=== PATIENT | male | born 1945 | race Caucasian/White ===

== ENCOUNTER 2016-12-01 23:49 | Day surgery (SDCO) | payer OTHER, SELFPAY ==
[2016-12-02 00:58] LABS: BASOPHIL 0.2 % (0-2); EOSINOPHIL 0.8 % (0-7); HGB 13.3 g/dl (13.2-18.0); LYMPHOCYTE 6.9 % (15-48); MCH 28.4 pg (25.0-31.0); MPV 9.1 fL (6.0-9.5); NEUTROPHIL 89.1 % (41-80); PLT 237 K/uL (150-400); RBC 4.69 M/uL (4.70-6.00); RDW 15.8 % (11.5-14.0); WBC 6.3 K/uL (4.0-10.5)
[2016-12-02 01:10] LABS: INR 1.01 (0.9-1.2); PROTHROMBIN TIME 12.9 SECONDS (11.7-14.0); PTT 29.9 SECONDS (23.2-31.4)
[2016-12-02 01:11] LABS: ALBUMIN 4.8 g/dL (3.4-4.8); BILIRUBIN - TOTAL 0.7 mg/dL (0.1-1.0); CREATININE 1.1 mg/dL (0.7-1.2); D-DIMER 0.71 ug/mLFEU (0.00-0.41); GLOBULIN (CALCULATION) 3.3 g/dL (2.2-4.2); MAGNESIUM 1.73 mg/dL (1.40-2.10); POTASSIUM 3.2 mmol/L (3.5-5.1); TOTAL PROTEIN 8.1 g/dL (6.4-8.3)
[2016-12-02 01:22] LABS: CKMB 5.53 ng/mL (0.97-4.94); TROPONIN T 0.123 ng/mL
[2016-12-02 09:35] LABS: BASOPHIL 0.2 % (0-2); EOSINOPHIL 0 % (0-7); HCT 35.4 % (42.0-52.0); HGB 12.5 g/dl (13.2-18.0); LYMPHOCYTE 10.4 % (15-48); MCH 28.7 pg (25.0-31.0); MCHC 35.3 g/dL (32.0-36.0); MCV 81.4 fL (78.0-100.0); MONOCYTE 5.8 % (0-12); MPV 9.1 fL (6.0-9.5); NEUTROPHIL 83.6 % (41-80); PLT 222 K/uL (150-400); RBC 4.35 M/uL (4.70-6.00); RDW 15.6 % (11.5-14.0); WBC 5.7 K/uL (4.0-10.5)
[2016-12-02 09:56] LABS: TROPONIN T 0.085 ng/mL
[2016-12-02 09:57] LABS: CREATININE 0.8 mg/dL (0.7-1.2); POTASSIUM 3.6 mmol/L (3.5-5.1)
[2016-12-02 09:58] LABS: CKMB 6.83 ng/mL (0.97-4.94)
== END 2016-12-02 13:10 | disposition other institution (70) ==
LOC: FER 23:49 → FTCU 12-02 04:27
PROVIDERS: Emergency Medicine; Nurse Practitioner Family; ADMIT Internal Medicine
DX: I21.4 Non-ST elevation (NSTEMI) myocardial infarction (principal); I10 Essential (primary) hypertension; I25.10 Atherosclerotic heart disease of native coronary artery without angina pectoris; F41.9 Anxiety disorder, unspecified; F32.9 Major depressive disorder, single episode, unspecified; E78.5 Hyperlipidemia, unspecified; J20.9 Acute bronchitis, unspecified; M48.00 Spinal stenosis, site unspecified; Z95.5 Presence of coronary angioplasty implant and graft; Z79.82 Long term (current) use of aspirin; Z79.02 Long term (current) use of antithrombotics/antiplatelets; Z79.899 Other long term (current) drug therapy; Z88.0 Allergy status to penicillin; Z90.49 Acquired absence of other specified parts of digestive tract; Z83.3 Family history of diabetes mellitus; Z80.1 Family history of malignant neoplasm of trachea, bronchus and lung; Z82.3 Family history of stroke
CPT/HCPCS: 36415; 71010; 71275; 80048; 80053; 82550; 82553; 83735; 83874; 83880; 84484; 85025; 85379; 85610; 85730; 93005; 96374; G0378; J1644; J2270; J2405; J2543; Q9967

== ENCOUNTER 2016-12-08 00:12 | Emergency (ER) | payer OTHER, SELFPAY | END 2016-12-08 02:35 | disposition home or self-care (01) | LOC: FER 00:12 | DX: J40 Bronchitis, not specified as acute or chronic (principal) | CPT/HCPCS: 71010 ==

== ENCOUNTER 2020-12-26 04:24 | Emergency (ER) | payer OTHER ==
[~2020-12-26 04:24] MED LIST: 3IN1 COMMODE XX; ALDACTONE25 MG PO; ALTACE5 MG PO; ANTIVERT25 MG PO; ASPIRIN CHEWABL81 MG PO; ASPIRIN EC81 MG PO; BACLOFEN 10MG T10 MG PO; BRILINTA90 MG PO; BUSPAR5 MG PO; CARAFATE1 GM PO; CERTAGEN1 EACH PO; COREG 6.25MG6.25 MG PO; COREG12.5 MG PO; CYCLOBENZAPRINE10 MG PO; ELIQUIS5 MG PO; ISOSORBIDE MONO60 MG PO; K-DUR20 MEQ PO; KLONOPIN0.5 MG PO; KLONOPIN1 MG PO; LASIX20 MG PO; LEVAQUIN500 MG PO; LIDOCAINE 5% P1 EACH TOP; LOVAZA1 GM PO; MEGACE ORA6 TSP/1 OZ PO; MELATONIN5 M2 PO; NORCO 5-325 TA1 EACH PO; NORVASC5 MG PO; ONDANSETRON ODT4 MG SL; OXYCODONE-ACET1 EAC1 PO; PANTOPRAZOLE SO40 MG PO; PATIENT'S OWN MED PO; PHENERGAN25 M1 PO; PLAVIX75 MG PO; POTASSIUM CHLO20 ME2 PO; PRAVACHOL80 MG PO; PREDNISONE 20MG20 MG PO; PREDNISONE20 MG PO; PROTONIX 40MG T40 MG PO; THERMOTABS TAB1 EACH PO; TOFRANIL25 MG PO; UROCIT-K10 MEQ PO; VITAMIN B-121000 MC1 PO; ZYRTEC-D TABLE1 EACH PO
[2020-12-26 05:18] LABS: BASOPHIL 0.2 % (0-2); EOSINOPHIL 4.2 % (0-7); HGB 13.6 g/dl (13.2-18.0); LYMPHOCYTE 17.4 % (15-48); MCH 29.3 pg (25.0-31.0); MCHC 33.2 g/dL (32.0-36.0); MCV 88.4 fL (78.0-100.0); MONOCYTE 10.1 % (0-12); MPV 8.9 fL (6.0-9.5); NEUTROPHIL 67.9 % (41-80); NRBC 0; PLT 181 K/uL (150-400); RBC 4.64 M/uL (4.70-6.00); RDW 15.5 % (11.5-14.0); WBC 4.5 K/uL (4.0-10.5)
[2020-12-26 05:35] LABS: ALBUMIN 3.9 g/dL (3.4-5.0); BILIRUBIN - TOTAL 0.6 mg/dL (0.2-1.0); BUN/CREAT RATIO (CALC) 20.2 RATIO; CREATININE 1.29 mg/dL (0.67-1.17); GLOBULIN (CALCULATION) 3.9 g/dL; POTASSIUM 4.5 mmol/L (3.5-5.1); TOTAL PROTEIN 7.8 g/dL (6.4-8.2)
[2020-12-26 06:48] LABS: CORONAVIRUS 2019 SARS-COV-2 NEGATIVE (NEGATIVE); INFLUENZA A NAA NEGATIVE (NEGATIVE)
[2021-01-12] MEDS ORDERED: MIRALAX17 GM PO (15:55)
[2021-01-12] MEDS ORDERED: ONDANSETRON ODT4 MG PO (15:55)
== END 2020-12-26 07:30 | disposition home or self-care (01) ==
LOC: FER 04:24
PROVIDERS: Emergency Medicine
DX: F41.9 Anxiety disorder, unspecified (principal); T40.2X5A Adverse effect of other opioids, initial encounter; T42.4X5A Adverse effect of benzodiazepines, initial encounter; T46.3X5A Adverse effect of coronary vasodilators, initial encounter; R79.89 Other specified abnormal findings of blood chemistry; M54.2 Cervicalgia; G89.29 Other chronic pain; I25.2 Old myocardial infarction; I48.91 Unspecified atrial fibrillation; Z95.5 Presence of coronary angioplasty implant and graft; Z95.0 Presence of cardiac pacemaker; Z20.822 Contact with and (suspected) exposure to COVID-19
CPT/HCPCS: 36415; 71045; 80053; 83735; 84484; 85025; 93005; U0002

== ENCOUNTER 2021-01-01 10:25 | Inpatient (IN) | payer OTHER ==
[2021-01-01 11:11] LABS: ALBUMIN 4.3 g/dL (3.4-5.0); BILIRUBIN - TOTAL 0.6 mg/dL (0.2-1.0); BUN/CREAT RATIO (CALC) 18.5 RATIO; CREATININE 1.19 mg/dL (0.67-1.17); GLOBULIN (CALCULATION) 4.4 g/dL; POTASSIUM 4.4 mmol/L (3.5-5.1); TOTAL PROTEIN 8.7 g/dL (6.4-8.2)
[2021-01-01 11:27] LABS: BASOPHIL 0.2 % (0-2); EOSINOPHIL 0.2 % (0-7); HGB 14.3 g/dl (13.2-18.0); MCH 29.1 pg (25.0-31.0); MCHC 33.3 g/dL (32.0-36.0); MCV 87.6 fL (78.0-100.0); MONOCYTE 10.3 % (0-12); MPV 10.2 fL (6.0-9.5); NEUTROPHIL 76.8 % (41-80); NRBC 0; RBC 4.91 M/uL (4.70-6.00); RDW 15.6 % (11.5-14.0); WBC 6.5 K/uL (4.0-10.5)
[2021-01-01 12:07] LABS: PLT 311 K/uL (150-400)
[2021-01-01 12:20] LABS: INR 1.25 (0.9-1.2); PROTHROMBIN TIME 14.9 SECONDS (11.4-13.6); PTT 22.2 SECONDS (22.2-34.7)
[2021-01-01 15:59] LABS: CORONAVIRUS 2019 SARS-COV-2 NEGATIVE (NEGATIVE); INFLUENZA A NAA NEGATIVE (NEGATIVE)
[2021-01-01] MEDS ORDERED: FLOMAX 0.4 MG0.4 MG PO (18:25)
[2021-01-02 05:00] LABS: BASOPHIL 0.2 % (0-2); EOSINOPHIL 0.7 % (0-7); HCT 38.5 % (42.0-52.0); HGB 12.8 g/dl (13.2-18.0); LYMPHOCYTE 24.9 % (15-48); MCHC 33.2 g/dL (32.0-36.0); MCV 87.3 fL (78.0-100.0); MONOCYTE 9.7 % (0-12); MPV 9.3 fL (6.0-9.5); NRBC 0; PLT 196 K/uL (150-400); RBC 4.41 M/uL (4.70-6.00); RDW 15.6 % (11.5-14.0); WBC 4.3 K/uL (4.0-10.5)
[2021-01-02 06:06] LABS: BUN/CREAT RATIO (CALC) 18.6 RATIO; CREATININE 1.18 mg/dL (0.67-1.17); MAGNESIUM 1.8 mg/dL (1.8-2.4); POTASSIUM 4.3 mmol/L (3.5-5.1)
--- NOTE | 2021-01-02 13:08 | NUR ---
1230 PT FEELING BAD, WEAK, DIZZY AND SHAKEY. MD NOTIFIED OF CHANGE TO A FLUTTER AND THE WAY PT IS FEELING. NO NEW ORDERS AT THIS TIME.
[2021-01-03 04:03] LABS: BUN/CREAT RATIO (CALC) 18.3 RATIO; CREATININE 1.31 mg/dL (0.67-1.17); POTASSIUM 4.2 mmol/L (3.5-5.1)
[2021-01-03 05:22] LABS: EOSINOPHIL 2.9 & (0-7); HCT 43.5 % (42.0-52.0); HGB 14.2 g/dl (13.2-18.0); MCH 28.6 pg (25.0-31.0); MCHC 32.6 g/dL (32.0-36.0); MCV 87.5 fL (78.0-100.0); MONOCYTE 13.5 % (0-12); MPV 9.3 fL (6.0-9.5); NEUTROPHIL 60.1 % (41-80); PLT 204 K/uL (150-400); RBC 4.97 M/uL (4.70-6.00); RDW 15.6 % (11.5-14.0); WBC 3.78 K/uL (4.0-10.5)
--- NOTE | 2021-01-03 13:42 | NUR ---
1300 PT TRANSFERED TO MED SURG AT THIS TIME VIA WHEELCHAIR. PT TOLERATED WELL. REPORT CALLED TO JESSEE QUIÑONES RN.
[2021-01-04 06:27] LABS: BASOPHIL 0.5 % (0-2); HCT 41.2 % (42.0-52.0); LYMPHOCYTE 12.9 % (15-48); MCH 29.7 pg (25.0-31.0); MCV 87.5 fL (78.0-100.0); MONOCYTE 14.6 % (0-12); MPV 9.2 fL (6.0-9.5); NEUTROPHIL 68.2 % (41-80); NRBC 0; PLT 169 K/uL (150-400); RBC 4.71 M/uL (4.70-6.00); RDW 15.4 % (11.5-14.0)
[2021-01-04 07:07] LABS: BUN/CREAT RATIO (CALC) 20.6 RATIO; CREATININE 1.26 mg/dL (0.67-1.17); POTASSIUM 3.9 mmol/L (3.5-5.1)
[2021-01-04] MEDS ORDERED: COREG 3.125M3.125 MG PO (13:20)
[2021-01-04] MEDS ORDERED: COLACE100 MG PO (13:20)
[2021-01-12] MEDS ORDERED: MIRALAX17 GM PO (15:55)
[2021-01-12] MEDS ORDERED: ONDANSETRON ODT4 MG PO (15:55)
== END 2021-01-04 14:48 | disposition home or self-care (01) | DRG 281 ==
LOC: FER 10:25 → FTCU 14:33 → FMS 14:33 → FTCU 15:13 → FMS 01-03 12:29
PROVIDERS: Emergency Medicine; ADMIT Allergy & Immunology Allergy
DX: I21.4 Non-ST elevation (NSTEMI) myocardial infarction (principal); I13.0 Hypertensive heart and chronic kidney disease with heart failure and stage 1 through stage 4 chronic kidney disease, or unspecified chronic kidney disease; I50.22 Chronic systolic (congestive) heart failure; N18.9 Chronic kidney disease, unspecified; I48.0 Paroxysmal atrial fibrillation; Z20.822 Contact with and (suspected) exposure to COVID-19; I25.5 Ischemic cardiomyopathy; I25.10 Atherosclerotic heart disease of native coronary artery without angina pectoris; E78.5 Hyperlipidemia, unspecified; F41.9 Anxiety disorder, unspecified; K59.09 Other constipation; G89.29 Other chronic pain; Z95.810 Presence of automatic (implantable) cardiac defibrillator; I25.2 Old myocardial infarction; Z95.5 Presence of coronary angioplasty implant and graft; Z79.01 Long term (current) use of anticoagulants; Z79.82 Long term (current) use of aspirin; Z79.52 Long term (current) use of systemic steroids; Z79.899 Other long term (current) drug therapy; Z88.8 Allergy status to other drugs, medicaments and biological substances; Z90.49 Acquired absence of other specified parts of digestive tract; Z98.890 Other specified postprocedural states
CPT/HCPCS: 36415; 71045; 80048; 80053; 83735; 83880; 84484; 85025; 85610; 85730; 93005; 97116; 97161; 97165; 97530-GP; 97535; J1650; J2405; U0002

== ENCOUNTER 2021-01-13 05:18 | Inpatient (IN) | payer OTHER, SELFPAY ==
[~2021-01-13 05:18] MED LIST changes: +COLACE100 MG PO; +COREG 3.125M3.125 MG PO; +FLOMAX 0.4 MG0.4 MG PO; +MIRALAX17 GM PO; +ONDANSETRON ODT4 MG PO
[2021-01-13 06:16] LABS: BASOPHIL 0.1 % (0-2); EOSINOPHIL 0 % (0-7); LYMPHOCYTE 3.1 % (15-48); MCH 29.1 pg (25.0-31.0); MCHC 33.3 g/dL (32.0-36.0); MCV 87.4 fL (78.0-100.0); MONOCYTE 5.4 % (0-12); MPV 9.3 fL (6.0-9.5); NRBC 0; PLT 217 K/uL (150-400); RBC 4.46 M/uL (4.70-6.00); RDW 15.3 % (11.5-14.0); WBC 7.4 K/uL (4.0-10.5)
[2021-01-13 06:45] LABS: ALBUMIN 3.4 g/dL (3.4-5.0); BILIRUBIN - TOTAL 1.5 mg/dL (0.2-1.0); BUN/CREAT RATIO (CALC) 15.4 RATIO; CREATININE 1.43 mg/dL (0.67-1.17); GLOBULIN (CALCULATION) 3.9 g/dL; POTASSIUM 4.7 mmol/L (3.5-5.1); TOTAL PROTEIN 7.3 g/dL (6.4-8.2)
[2021-01-13 07:29] LABS: INR 1.42 (0.9-1.2); PROTHROMBIN TIME 16.5 SECONDS (11.4-13.6)
[2021-01-13 07:30] LABS: PTT 42.4 SECONDS (22.2-34.7)
--- NOTE | 2021-01-13 11:54 | NUR ---
REQUESTED MEDICATION LIST FROM [facility] EARLIER IN THE SHIFT. DAUGHTER WAS AT BEDSIDE AT THE TIME AND CONFIRMED THAT THE PATIENT GETS ALL OF HIS MEDICATIONS FROM [facility] IN [place]. A LIST WAS SENT AND REVIEW OF CURRENT LIST IN CHART DOES NOT MATCH FOR MANY MEDICATIONS. THE DAUGHTER STATED THAT HER BROTHER, WHO WOULD ARRIVE LATER TODAY, HAS A LIST. WHEN SHE CONTACTED HIM TO HAVE HIM ASSIST WITH OBTAINING THE LIST PRIOR TO HIS ARRIVAL, HE STATED THAT THE PATIENT HAD A LIST IN HIS WALLET. THE PATIENT WAS ADAMANT THAT HE DID NOT HAVE A LIST IN HIS WALLET, HOWEVER, ONE WAS FOUND. THIS LIST DID NOT MATCH THE LIST OBTAINED FROM [facility]. THIS WAS DISCUSSED WITH DR. GUPTA. HE WAS INFORMED THAT THE LIST HE CONTINUED MEDICATIONS FROM WAS NOT UP TO DATE. THE DAUGHTER WAS CALLED AND SHE WILL BE BRINING THE PATIENT'S MEDICATIONS BOTTLES IN FOR REVIEW LATER TODAY.
--- NOTE | 2021-01-13 12:30 | NUR ---
PT REMOVED BIPAP
--- NOTE | 2021-01-13 13:21 | NUR ---
PT TROPONIN ELEVATED AT 0.722, NOTIFIED AND ORDERED EKG STAT. EKG CAME BACK AFLUTTER. NOTIFIED.
[2021-01-13] MEDS ORDERED: LOSARTAN POTASS25 MG PO (14:31)
[2021-01-13] MEDS ORDERED: PROTONIX 40MG T40 MG PO (14:32)
[2021-01-13] MEDS ORDERED: K-DUR20 MEQ PO (14:33)
[2021-01-13] MEDS ORDERED: COREG 6.25MG6.25 MG PO (14:33)
[2021-01-13] MEDS ORDERED: AMLODIPINE BES2.5 MG PO (14:34)
[2021-01-13] MEDS ORDERED: ISOSORBIDE MONO60 MG PO ×2 (14:35→14:36)
[2021-01-13] MEDS ORDERED: BRILINTA90 MG PO (14:38)
[2021-01-13] MEDS ORDERED: MEDROL 4MG DOSEP4 MG PO (14:41)
--- NOTE | 2021-01-13 15:15 | NUR ---
THIS RN PLACED CARTER AT 1515. PT DID NOT TOLERATE WELL, WAS GRABBING RNS HANDS, TOSSING AND TURNING. PT C/O PAIN. MORPHINE WAS GIVEN AT 1430. 225 CC OUT OF CARTER UPON ENTRY.
--- NOTE | 2021-01-13 15:30 | NUR ---
PT REMOVED BIPAP
--- NOTE | 2021-01-13 15:33 | NUR ---
PT PLACED ON BIPAP AT 1130 AM PT TOLERATING WELL RR ARE STILL 35-40 PT WILLNOT KEEP BIPAP ON FOR VERY LONG
[2021-01-13 17:08] LABS: BILIRUBIN NEGATIVE (NEGATIVE); BLOOD 3+ Ery/uL (NEGATIVE); CLARITY HAZY (CLEAR); COLOR YELLOW (YELLOW); GLUCOSE (U) NORMAL (NORMAL); LEUKOCYTES NEGATIVE Leu/uL (NEGATIVE); NITRITE NEGATIVE (NEGATIVE); PROTEIN NEGATIVE (NEGATIVE); UROBILINOGEN 0.2 mg/dL (0.2-1.0); pH 5.5 (5.0-9.0)
[2021-01-13 17:13] LABS: SQUAMOUS EPITHELIAL CELLS RARE; URINARY RBC 20-50
--- NOTE | 2021-01-13 17:26 | NUR ---
PT IS RESTING IN BED. PT GIVEN MAG CITRATE TO DRINK FOR CONSTIPATION. PT HAS SOME "ROTTEN" TEETH BUT IS NOT A CANDIDATE FOR REMOVAL R/T BEING ON BRILINTA AND ELIQUIS. THESE TEETH ARE BLEEDY AT THIS TIME. PT HAS A CARTER PLACED TODAY WITH BLOODY URINE. UA WAS NORMAL EXCEPT BLOOD COUNT. SUSPECTED THIS IS ALSO FROM ELIQUIS AND BRILINTA. PT HAS BIPAP IN ROOM BUT WILL NOT WEAR FOR LONG PERIODS OF TIME. BIPAP SETTINGS ARE 12/5 RATE 16 FIO2 40%. PT HAS MULTIPLE BRUSIES ON LUE AND BRUISE ON RLQ FROM LOVENOX. NO OTHER SKIN ISSUES AT THIS TIME. PT TROPONIN ELEVATED AT 0.722 AND A EKG SHOWED A FLUTTER RATE CONTROLLED AT 98 BPM. PT WAS GIVEN A DUCOLAX SUPPOSITORY AT 1700 TO ASSIST WITH BOWEL MOVEMENT BUT NONE YET. PT C/O PAIN AND NAUSEA. ZOFRAN WAS GIVEN FOR NAUSEA AT 1645 BUT MORPHINE IS NOT DUE UNTIL AFTER 6PM. NOTIFIED.
[2021-01-14 06:39] LABS: BUN/CREAT RATIO (CALC) 18.4 RATIO; CREATININE 1.9 mg/dL (0.67-1.17); POTASSIUM 4.5 mmol/L (3.5-5.1)
--- NOTE | 2021-01-14 12:08 | NUR ---
PT ASSISTED TO BSC AND HAD A VERY SMALL HARD BM WITH WATERY STOOLS. NOTIFIED.
--- NOTE | 2021-01-14 12:58 | NUR ---
REPORT GIVEN TO [place] [id number] [facility] RN AT 0853
--- NOTE | 2021-01-14 14:34 | NUR ---
01/14/21 Sav Crane, son, [phone], telephoned to request in-home resources. He reports his mother to have mild dementia and his father to be hospitalized frequently. Ms. Crane is currently at Sav's home. Sav Crane was educated to: LTADD, sitter services, Medicaid Waiver, and [facility].
== END 2021-01-14 14:15 | disposition other institution (70) | DRG 280 ==
LOC: FER 05:18 → FTCU 08:31
PROVIDERS: Emergency Medicine; ADMIT Allergy & Immunology Allergy
DX: I21.4 Non-ST elevation (NSTEMI) myocardial infarction (principal); I50.23 Acute on chronic systolic (congestive) heart failure; J96.91 Respiratory failure, unspecified with hypoxia; N17.9 Acute kidney failure, unspecified; I13.0 Hypertensive heart and chronic kidney disease with heart failure and stage 1 through stage 4 chronic kidney disease, or unspecified chronic kidney disease; I48.92 Unspecified atrial flutter; I25.110 Atherosclerotic heart disease of native coronary artery with unstable angina pectoris; K56.41 Fecal impaction; I25.5 Ischemic cardiomyopathy; Z20.822 Contact with and (suspected) exposure to COVID-19; I27.20 Pulmonary hypertension, unspecified; E78.5 Hyperlipidemia, unspecified; F41.9 Anxiety disorder, unspecified; I48.0 Paroxysmal atrial fibrillation; K44.9 Diaphragmatic hernia without obstruction or gangrene; K21.9 Gastro-esophageal reflux disease without esophagitis; N18.9 Chronic kidney disease, unspecified; Z95.5 Presence of coronary angioplasty implant and graft; Z90.49 Acquired absence of other specified parts of digestive tract; Z95.810 Presence of automatic (implantable) cardiac defibrillator; Z79.01 Long term (current) use of anticoagulants; Z79.82 Long term (current) use of aspirin; Z79.899 Other long term (current) drug therapy; Z88.8 Allergy status to other drugs, medicaments and biological substances; Z98.890 Other specified postprocedural states
CPT/HCPCS: 36415; 36600; 71046; 71250; 74022; 80048; 80053; 81001; 82803; 83605; 83690; 83880; 84145; 84484; 85025; 85610; 85730; 87040; 93005; 94660; 96372; J0500; J1650; J1940; J2270; J2405; J2550; J7050; U0002